=== PATIENT | female | born 1945 | race Caucasian/White ===

== ENCOUNTER 2024-10-03 15:26 | Emergency (ER) | payer MEDICARE, BC ==
[2024-10-03 15:36] VITALS: TEMP 97.7
[2024-10-03 15:47] VITALS: RESP 18
--- NOTE | 2024-10-03 15:59 | ED ---
General Adult HPI <Garcia Gabriel - Last Filed: 10/03/24 17:10> - General Source: patient, family, RN notes reviewed Mode of arrival: ambulatory Limitations: no limitations <MalaWanda - Last Filed: 10/03/24 19:56> - General Chief complaint: Recheck/Abnormal Lab/Rx Stated complaint: stroke-like symptoms Time Seen by Provider: 10/03/24 15:44 - History of Present Illness Initial comments: Patient is a 79-year-old female with history of hypertension, hyperlipidemia presenting to the emergency department after cardiac specialist sent her here due to bilateral retinal hemorrhagesconcern for stroke. Patient denies headache, weakness, visual changes, hearing changes, facial drooping. Family member at bedside denies noticing any changes including slurred speech, facial drooping, imbalance issues. (Wanda Medeiros) - Related Data Allergies Allergy/AdvReac Type Severity Reaction Status Date / Time sulfamethoxazole AdvReac Rash/Hives Verified 10/03/24 15:36 [From Bactrim] trimethoprim [From Bactrim] AdvReac Rash/Hives Verified 10/03/24 15:36 Review of Systems ROS Other: All systems not noted in ROS Statement are negative. <Garcia Gabriel - Last Filed: 10/03/24 17:10> ROS Other: All systems not noted in ROS Statement are negative. <MalaWanda - Last Filed: 10/03/24 19:56> ROS Statement: Those systems with pertinent positive or pertinent negative responses have been documented in the HPI. Past Medical History Past Medical History: Hyperlipidemia, Hypertension, Thyroid Disorder Past Surgical History: Section Past Psychological History: Anxiety Smoking Status: Former smoker Past Alcohol Use History: Daily Past Drug Use History: None Reported <MalaWanda - Last Filed: 10/03/24 19:56> General Exam Limitations: no limitations General appearance: alert, in no apparent distress Head exam: Present: atraumatic Eye exam: Present: EOMI. Absent: PERRL (patient just had eyes dilated at cardiac specialist) Respiratory exam: Present: normal lung sounds bilaterally. Absent: respiratory distress, wheezes, rales, rhonchi, accessory muscle use Cardiovascular Exam: Present: regular rate, normal rhythm, normal heart sounds. Absent: systolic murmur, diastolic murmur GI/Abdominal exam: Present: soft, normal bowel sounds. Absent: distended, tenderness Extremities exam: Present: normal inspection Neurological exam: Present: alert, oriented X3, CN II-XII intact, normal gait Psychiatric exam: Present: normal affect, normal mood Skin exam: Present: warm, dry, intact <Wanda Medeiros - Last Filed: 10/03/24 19:56> Course Vital Signs 10/03/24 10/03/24 10/03/24 15:31 15:40 16:39 Temperature 97.7 F Pulse Rate 90 104 H 78 Respiratory 22 18 18 Rate Blood Pressure 206/98 205/103 186/92 O2 Sat by Pulse 99 98 99 Oximetry 10/03/24 10/03/24 18:35 19:21 Temperature Pulse Rate 80 78 Respiratory 18 18 Rate Blood Pressure 195/106 187/111 O2 Sat by Pulse 98 Oximetry EKG Findings - EKG Results: EKG: interpreted by ERMD, sinus rhythm (Sinus arrhythmia, rate 93 bpm) - Blocks, [place], Hypertrophy, ST Abn: QRS axis and voltage: left axis deviation (-30 to -90) (Borderline) Chamber hypertrophy or enlargement: only voltage criteria for left ventricular hypertrophy Repolarization changes or abnormalities: nonspecific abnormality, ST segment, and/or T wave <Garcia Gabriel - Last Filed: 10/03/24 17:10> Medical Decision Making - Lab Data Result diagrams: 10/03/24 16:39 <Garcia Gabriel - Last Filed: 10/03/24 17:10> - Lab Data Result diagrams: 10/03/24 16:39 10/03/24 16:39 <Wanda Medeiros - Last Filed: 10/03/24 19:56> - Medical Decision Making Was pt. sent in by a medical professional or institution (, PA, COMMUNITY RELATIONS REPRESENTATIVE, urgent care, hospital, or half-way...) When possible be specific @ -No Did you speak to anyone other than the patient for history (EMS, parent, family, police, friend...)? What history was obtained from this source @ -No Did you review nursing and triage notes (agree or disagree)? Why? @ -I reviewed and agree with nursing and triage notes Were old charts reviewed (outside hosp., previous admission, EMS record, old EKG, old radiological studies, urgent care reports/EKG's, half-way records)? Report findings @ -No old charts were reviewed Differential Diagnosis? @ -Differential CVA Ischemic stroke, hemorrhagic stroke, brain tumor, atypical migraine, Wernicke's encephalopathy, seizure, multiple sclerosis, meningitis, encephalitis, hypoglycemia, Guillain-Leger, electrolytes disturbance, myasthenia gravis.... This is not meant to be an all-inclusive list EKG interpreted by me (3pts min.). @ -As above X-rays interpreted by me (1pt min.). @ -None done CT interpreted by me (1pt min.). @ -No intracranial hemorrhage or mass U/S interpreted by me (1pt. min.). @ -None done What testing was considered but not performed or refused? (CT, X-rays, U/S, labs)? Why? @ -None What meds were considered but not given or refused? Why? @ -None Did you discuss the management of the patient with other professionals (professionals i.e. , PA, COMMUNITY RELATIONS REPRESENTATIVE, lab, RT, psych nurse, manager social work, finish mender, teacher, quality officer, comp field case manager)? Give summary @ -No Was smoking cessation discussed for >3mins.? @ -No Was critical care preformed (if so, how long)? @ -No Were there social determinants of health that impacted care today? How? (Homelessness, low income, unemployed, alcoholism, drug addiction, transportation, low edu. Level, literacy, decrease access to med. care, senior living, rehab)? @ -No Was there de-escalation of care discussed even if they declined (Discuss DNR or withdrawal of care, Hospice)? DNR status @ -No What co-morbidities impacted this encounter? (DM, HTN, Smoking, COPD, CAD, Cancer, CVA, ARF, Chemo, Hep., AIDS, mental health diagnosis, sleep apnea, morbid obesity)? @ -None Was patient admitted / discharged? Hospital course, mention meds given and route, prescriptions, significant lab abnormalities, going to OR and other pertinent info. @ -Patient is a 79-year-old female with history of hypertension, hyperlipidemia presenting to the emergency department after cardiac specialist sent her here due to bilateral retinal hemorrhagesconcern for stroke. CBC, CMP, coagulation panel, EKG, CTA brain and neck obtained. Labs and imaging unremarkable. Multiple reevaluations unchanged. CTA showed no evidence of dissection of the cervical internal carotid arteries or vertebral arteries or any evidence of significant stenosis at the carotid bifurcation, no evidence of high-grade stenosis or intracranial aneurysm. Blood pressure 187/111, patient given losartan 50 mg and discharged home as she did not want to stay for further observation of blood pressure. Recommended patient follow-up with PCP in 1 to 2 days. Given neurology referral. Return precautions discussed. Undiagnosed new problem with uncertain prognosis? @ -No Drug Therapy requiring intensive monitoring for toxicity (Heparin, Nitro, Insulin, Cardizem)? @ -No Were any procedures done? @ -No Diagnosis/symptom? @ -Hypertension Acute, or Chronic, or Acute on Chronic? @ -Chronic Uncomplicated (without systemic symptoms) or Complicated (systemic symptoms)? @ -Uncomplicated Side effects of treatment? @ -No Exacerbation, Progression, or Severe Exacerbation? @ -No Poses a threat to life or bodily function? How? (Chest pain, [place], [place], pneumonia, PE, COPD, DKA, ARF, appy, cholecystitis, CVA, Diverticulitis, Homicidal, Suicidal, threat to staff... and all critical care pts) @ -No (Wanda Medeiros) - Lab Data Lab Results 10/03/24 10/03/24 10/03/24 Range/Units 16:39 16:39 16:39 WBC 8.45 (4.50-10.00) 10*3/uL RBC 4.92 (4.10-5.20) 10*6/uL Hgb 15.3 H (12.0-15.0) g/dL Hct 44.9 (37.2-46.3) % MCV 91.3 (80.0-97.0) fL MCH 31.1 (27.0-32.0) pg MCHC 34.1 (32.0-37.0) g/dL Plt Count 309 (140-440) 10*3/uL MPV 9.7 (9.5-12.2) fL Immature Gran % (Auto) 0.2 % Neutrophils % 71.3 % Lymphocytes % 19.8 % Monocytes % 6.5 % Eosinophils % 1.1 % Basophils % 1.1 % Immature Gran # 0.02 (0.00-0.04) 10*3/uL Neutrophils # 6.03 (1.80-7.70) 10*3/uL Lymphocytes # 1.67 (0.90-5.00) 10*3/uL Monocytes # 0.55 (0.20-1.00) 10*3/uL Eosinophils # 0.09 (0.04-0.35) 10*3/uL Basophils # 0.09 (0.00-0.10) 10*3/uL PT 10.0 (10.0-12.5) sec INR 0.9 (<1.2) APTT 24.2 (22.0-30.0) sec Sodium 134 L (137-145) mmol/L Potassium 3.8 (3.5-5.1) mmol/L Chloride 92 L (98-107) mmol/L Carbon Dioxide 31 H (22-30) mmol/L Anion Gap 11 mmol/L BUN 15 (7-17) mg/dL Creatinine 0.81 (0.52-1.04) mg/dL Est GFR (CKD-EPI)AfAm 80 (>60 ml/min/1.73 sqM) Est GFR (CKD-EPI)NonAf 70 (>60 ml/min/1.73 sqM) Glucose 155 H (74-99) mg/dL Calcium 10.2 (8.4-10.2) mg/dL Total Bilirubin 1.0 (0.2-1.3) mg/dL AST 35 (14-36) U/L ALT 25 (4-34) U/L Alkaline Phosphatase 88 (38-126) U/L Total Protein 8.3 H (6.3-8.2) g/dL Albumin 5.0 (3.5-5.0) g/dL - EKG Data EKG Comments: Normal sinus rhythm, normal axis deviation, no ST segment changes, 93 bpm, QTc 415 ms (Wanda Medeiros) Disposition <Garcia Gabriel - Last Filed: 10/03/24 17:10> Is patient prescribed a controlled substance at d/c from ED?: No Time of Disposition: 19:17 <Wanda Medeiros - Last Filed: 10/03/24 19:56> Clinical Impression: Hypertension Disposition: HOME SELF-CARE Condition: Stable Instructions (If sedation given, give patient instructions): Chronic Hypertension (ED) Additional Instructions: Every disease is a spectrum and a small chance still exists that a serious condition could develop, for this reason, please monitor yourself closely for new, changing or worsening symptoms including facial drooping, slurred speech, extremity weakness, symptoms that persist beyond 48 hours, fever, inability to tolerate/keep down fluids or your medications, inability to follow up with outpatient providers as instructed and should you experience these symptoms or should you have any further concerns for your wellbeing please return to the ED or call 911 immediately. Please follow up with primary care provider in 1-2 days. Please follow-up with specialists as indicated. Your pain can be treated with ibuprofen and acetaminophen. You can take up to 400-600 mg of ibuprofen (Advil, Motrin) 3 times daily (every 8 hours) but can also use lower doses if this relieves your pain. Some people prefer naproxen (Aleve, Naprosyn) which can be taken in doses of 500 mg up to twice a day. Do not take both of these medicines together, and do not combine either with ketorolac (Toradol), meloxicam (Mobic), or indomethacin (Tivorbex). Some people can develop stomach discomfort with higher doses of either ibuprofen or naproxen, if this develops decrease your dose or stop taking it. If you need to take this dose daily for more than a week, please schedule an appointment for re-evaluation with your PCP. Please take these medications with food. You can take up to 1000 mg of acetaminophen (Tylenol) every 6 hours. Be careful as this is included in some medicines like Nyquil, [place], Percocet, Vicodin, STANBACK, Goody's Powders, and Excedrin. You can also use lidocaine patches for topical pain. You can purchase 4% patches over the counter at most drug stores. These can be helpful for pain from your muscles or bones. PLEASE let us know here before you leave if there is anything further we can do to be of any assistance. Take care and feel Better! Referrals: Leslye Liz MD [Primary Care Provider] - 1-2 days Mary Saunders MD [REFERRING] - 1-2 days
[2024-10-03] MEDS: LABETALOL 5 MG/ML VIAL MDV IVP STA (16:37)
[2024-10-03 17:07] LABS: Basophils # (A) 0.09 10*3/uL (0.00-0.10); Basophils % (A) 1.1 %; Eosinophils # (A) 0.09 10*3/uL (0.04-0.35); Eosinophils % (A) 1.1 %; HCT 44.9 % (37.2-46.3); HGB 15.3 g/dL (12.0-15.0); Lymphocytes # (A) 1.67 10*3/uL (0.90-5.00); Lymphocytes % (A) 19.8 %; MCH 31.1 pg (27.0-32.0); MCHC 34.1 g/dL (32.0-37.0); MCV 91.3 fL (80.0-97.0); Mean Platelet Volume 9.7 fL (9.5-12.2); Monocytes # (A) 0.55 10*3/uL (0.20-1.00); Monocytes % (A) 6.5 %; Neutrophils # (A) 6.03 10*3/uL (1.80-7.70); Neutrophils % (A) 71.3 %; Platelet Count 309 10*3/uL (140-440); RBC 4.92 10*6/uL (4.10-5.20); RDW 11.9 % (11.5-14.5); WBC 8.45 10*3/uL (4.50-10.00)
[2024-10-03 17:17] LABS: INR 0.9 (<1.2); Partial Thromboplastin Time 24.2 sec (22.0-30.0)
[2024-10-03 17:20] LABS: ALT 25 U/L (4-34); AST 35 U/L (14-36); African American GFR (CKD) 80 (>60 ml/min/1.73 sqM); Alkaline Phosphatase 88 U/L (38-126); Anion Gap 11 mmol/L; Blood Urea Nitrogen 15 mg/dL (7-17); Calcium 10.2 mg/dL (8.4-10.2); Carbon Dioxide 31 mmol/L (22-30); Chloride 92 mmol/L (98-107); Glucose 155 mg/dL (74-99); Non-African American GFR(CKD) 70 (>60 ml/min/1.73 sqM); Potassium 3.8 mmol/L (3.5-5.1); Sodium 134 mmol/L (137-145); Total Protein 8.3 g/dL (6.3-8.2)
--- NOTE | 2024-10-03 18:48 | CT ---
EXAMINATION TYPE: CT angio head neck CT DLP: 1474.2 mGycm, Automated exposure control for dose reduction was used. DATE OF EXAM: 10/03/2024 6:38 PM COMPARISON: None. CLINICAL INDICATION:Female, 79 years old with history of retinal hemorrhage; PHH, Retinal hemorrhage. TECHNIQUE: Axially acquired helical CT angiogram of the head and neck was obtained with contrast util izing 65 cc of Isovue-370 administered intravenously. Noncontrast imaging of the head was performed b efore administration of intravenous contrast. Axial images are supplemented with 3D reconstructions w hich were post-processed at an independent workstation. NASCET criteria used. MIP imaging performed on a separate workstation and submitted for review. FINDINGS: CTA HEAD: No evidence of acute intracranial hemorrhage, mass effect, or midline shift. The ventricles, sulci, a nd cisterns are unremarkable. Age-appropriate cerebral volume loss. Confluent patchy hypoattenuating regions within the subcortical and periventricular white matter likely related to small vessel ischem ic disease. The visualized portions of the internal carotid arteries, middle cerebral arteries, anterior cerebral arteries, and posterior cerebral arteries are patent. origin of the right [place]. The basilar and vertebral arteries are patent. CTA NECK: Right Carotid System: The common carotid artery and external carotid artery are patent. Mild calcified plaque at the caroti d bifurcation extending into the proximal internal carotid artery. The carotid bifurcation demonstrat es no evidence of hemodynamically significant stenosis. The remaining portions of the internal caroti d artery demonstrate normal size without significant narrowing. Left Carotid System: The common carotid artery and external carotid artery are patent. Mild calcified plaque at the caroti d bifurcation extending into the proximal internal carotid artery. The carotid bifurcation demonstrat es no evidence of hemodynamically significant stenosis. The remaining portions of the internal caroti d artery demonstrate normal size without significant narrowing. Vertebral arteries are patent without evidence hemodynamically significant stenosis. The vertebral ar antonio is dominant. There is a three-vessel aortic arch. Mild atherosclerotic calcification of the aorta and its branches . The origins of the great vessels are patent. No evidence of hemodynamically significant stenosis. Mild centrilobular emphysematous changes. Increased upper thoracic kyphosis. Multilevel degenerative disc disease of the upper thoracic spine. S-shaped scoliotic curvature of the cervicothoracic spine. Atrophic thyroid gland with macrocalcifications. IMPRESSION: 1. No evidence of dissection of the cervical internal carotid arteries or vertebral arteries or any e vidence of significant stenosis at the carotid bifurcations. 2. No evidence of high-grade stenosis or intracranial aneurysm. [facility], , 10/03/2024 6:45 PM
[2024-10-03 19:31] VITALS: BP 187/111; PULSE 78
[2024-10-03] MEDS: LOSARTAN 50 MG TAB PO STA (19:36)
== END 2024-10-03 19:25 | disposition home or self-care (01) ==
LOC: EC 15:26
DX: I10 Essential (primary) hypertension (principal); Z88.1 Allergy status to other antibiotic agents; Z88.2 Allergy status to sulfonamides; Z87.891 Personal history of nicotine dependence; I49.8 Other specified cardiac arrhythmias
CPT/HCPCS: 36415; 93005; 80053; 85025; 85610; 85730; 70496; 70498; 99284; 96374; Q9967; J1920